=== PATIENT | male | born 1990 | race Caucasian/White ===

== ENCOUNTER 2017-01-08 18:35 | Emergency (ER) | payer SELFPAY ==
[2017-01-08 18:57] VITALS: BP 149/62
--- NOTE | 2017-01-08 19:25 | EDM.PDOC ---
ED HPI GENERAL MEDICAL PROBLEM - General Chief Complaint: ENT Problem Stated Complaint: TOOTH PAIN Time Seen by Provider: 01/08/17 19:10 Source of Information: Reports: Patient History Limitations: Reports: No Limitations - History of Present Illness INITIAL COMMENTS - FREE TEXT/NARRATIVE: dental pain; woke up this morning, tooth was hurting, went back to bed, woke up this afternoon, face with swelling. denies fever, chills, nausea, vomiting, diarrhea or rash Onset: Sudden Location: Reports: Head Quality: Reports: Throbbing Severity: Moderate Improves with: Reports: None Worsens with: Reports: None Context: Reports: Other (dental caries) Associated Symptoms: Reports: No Other Symptoms Tooth/Teeth Pain Score (Numeric/FACES): 10 - Related Data Allergies Allergy/AdvReac Type Severity Reaction Status Date / Time No Known Allergies Allergy Verified 01/08/17 18:57 Home Meds: Home Meds NK [No Known Home Meds] 01/08/17 [History] Past Medical History Musculoskeletal History: Reports: Fracture Other Musculoskeletal History: fx l leg - Infectious Disease History Infectious Disease History: Reports: Chicken Pox - Past Surgical History HEENT Surgical History: Reports: Other (See Below) Other HEENT Surgeries/Procedures: ear surgery x2 Social & Family History - Tobacco Use Smoking Status *Q: Current Every Day Smoker Years of Tobacco use: 17 Packs/Tins Daily: 0.2 Used Tobacco, but Quit: No Second Hand Smoke Exposure: Yes - Caffeine Use Caffeine Use: Reports: Coffee, Energy Drinks, Soda, Tea - Alcohol Use Days Per Week of Alcohol Use: 0 - Recreational Drug Use Recreational Drug Use: No ED ROS ENT - Review of Systems Review Of Systems: See Below Constitutional: Reports: Other (dental pain) HEENT: Reports: Other (dental pain) Respiratory: Reports: No Symptoms Cardiovascular: Reports: No Symptoms Skin: Reports: No Symptoms Neurological: Reports: No Symptoms Psychiatric: Reports: No Symptoms Hematologic/Lymphatic: Reports: No Symptoms Immunologic: Reports: No Symptoms ED EXAM, ENT - Physical Exam Exam: See Below Exam Limited By: No Limitations General Appearance: Alert, Mild Distress Eye Exam: Bilateral Eye: Normal Inspection Ears: Normal External Exam, Normal Canal, Hearing Grossly Normal, Normal TMs Nose: Normal Inspection, Normal Mucousa, No Blood Mouth/Throat: Dental Pain (#14 and #15 with large cavities.), Dental Tenderness , Gum Swelling, Other (left lower jaw with edema) Head: Facial Swelling (left lower jaw), Facial Tenderness Neck: Normal Inspection, Supple, Non-Tender, Full Range of Motion Respiratory/Chest: No Respiratory Distress, Lungs Clear, Normal Breath Sounds, No Accessory Muscle Use, Chest Non-Tender Cardiovascular: Normal Peripheral Pulses, Regular Rate, Rhythm, No Edema, No Gallop, No JVD, No Murmur, No Rub Extremities: Normal Inspection Neurological: Alert, Oriented, Normal Cognition, Normal Gait, Normal Reflexes, No Motor/Sensory Deficits Psychiatric: Normal Affect, Normal Mood Skin: Warm, Dry, Intact, Normal Color, No Rash Lymphatic: No Adenopathy Course - Vital Signs Last Recorded V/S: Last Vital Signs Temp 37.7 C 01/08/17 19:02 Pulse 85 01/08/17 19:02 Resp 12 01/08/17 19:02 BP 149/62 H 01/08/17 19:02 Pulse Ox 97 01/08/17 19:02 Departure - Departure Time of Disposition: 19:45 Disposition: Home, Self-Care 01 Condition: Good Clinical Impression: Dental abscess - Discharge Information Instructions: Dental Caries, Dental Abscess Referrals: PCP,None [Primary Care Provider] - Forms: ED Department Discharge Care Plan Goals: dental pain with abscess -Penicillin 500mg 4 times a day for 7 days -hydrocodone 5-325mg take one every 4 to 6 hours as needed for pain -continue take over the counter Tylenol or Motrin as directed for pain Keep appointment for follow up in Wednesday. return to ER or Urgent Care if not improved or symptoms worsen. - Problem List & Annotations (1) Dental abscess SNOMED Code(s): 979541371 Code(s): K04.7 - PERIAPICAL ABSCESS WITHOUT SINUS Status: Acute Priority : High - Problem List Review Problem List Initiated/Reviewed/Updated: Yes - Assessment/Plan Plan: dental pain with abscess -Penicillin 500mg 4 times a day for 7 days -hydrocodone 5-325mg take one every 4 to 6 hours as needed for pain -continue take over the counter Tylenol or Motrin as directed for pain Keep appointment for follow up in Wednesday. return to ER or Urgent Care if not improved or symptoms worsen.
== END 2017-01-08 19:43 | disposition home or self-care (01) ==
LOC: JP.ED 18:35
DX: K04.7 Periapical abscess without sinus (principal); F17.210 Nicotine dependence, cigarettes, uncomplicated
CPT/HCPCS: 99283